=== PATIENT | female | born 1945 | race Caucasian/White ===

== ENCOUNTER 2019-02-02 08:45 | Outpatient (CLI) | payer MEDICARE, OTHER ==
[2019-02-13 10:00] LABS: BASOPHILS % 0.3 % (0.0-1.5)
[2019-02-13 10:01] LABS: NEUTROPHILS # 3.6 # k/uL (1.4-7.7)
== END 2019-02-02 08:55 ==
LOC: LAB 08:45
PROVIDERS: ATTEND Nurse Practitioner Family
DX: D72.829 Elevated white blood cell count, unspecified (principal)
CPT/HCPCS: 36415; 85025